=== PATIENT | male | born 2000 | race Caucasian/White ===

== ENCOUNTER 2018-02-02 02:41 | Emergency (ER) | payer OTHER ==
[~2018-02-02] VITALS: Ht 172.7 cm; Wt 70.0 kg
[2018-02-02 02:47] VITALS: TEMP 97.3
[2018-02-02 05:22] VITALS: BP 127/69; PULSE 79
== END 2018-02-02 05:25 | disposition home or self-care (01) ==
LOC: COL.ER 02:41
DX: F10.129 Alcohol abuse with intoxication, unspecified (principal); Y90.7 Blood alcohol level of 200-239 mg/100 ml
CPT/HCPCS: J2765; J7030